=== PATIENT | female | born 1975 | race Two or more races ===

== ENCOUNTER 2020-10-31 19:48 | Emergency (ER) | payer MEDICAID ==
[~2020-10-31] VITALS: Ht 157.5 cm; Wt 83.0 kg
[2020-10-31 20:00] VITALS: BP 142/73
[2020-10-31] MEDS ORDERED: Augmentin 875mg Tab ORAL ONE (20:00)
[2020-10-31] MEDS ORDERED: Neosporin Oint Ud Pkt TOPIC ONE (20:00)
[2020-10-31] MEDS ORDERED: Tetanus/Diptheria/Pertussis IM ONE (20:00)
--- NOTE | 2020-10-31 20:00 | NUR ---
ED Nurse Note: Patient walked into Ed c/o animal bite that occured around 1245pm today, per patient it was her neighbors dog, unknown if neighbor's dog was vaccinated however patient presents with 1 skin tear cecilia located on her left forearm. patient is alert and oriented x4, ambulatory with a steady gait VSS. patient reports of being not up to date with vaccinations
--- NOTE | 2020-10-31 20:00 | NUR ---
Nurse Note: Patient walked into ED c/o dog bite that occured at around 1230pm today by her neighbors dog. bite occured on patients left forearm. unknown if dog is vaccinated.
[2020-10-31] MEDS ORDERED: AUGMENTIN 875-1 EAC1 ORAL (20:03)
[2020-10-31] MEDS ORDERED: NEOSPORIN OINT30 GM TOPIC (20:03)
--- NOTE | 2020-10-31 20:08 | Emergency Room Report ---
History of Present Illness General Chief Complaint: Animal Bite Source: Patient, Family Member - daughter Present Illness HPI Patient is a 45-year-old female denies any significant past medical history who presents to the ER complaining of dog bite. Patient states the dog bite occur red around 1230 this afternoon from her neighbors dog. She does not know her last tetanus shot. Allergies: Coded Allergies: No Known Allergies (Unverified , 10/31/20) COVID-19 Screening Contact w/high risk pt: No Experienced COVID-19 symptoms?: No COVID-19 Testing performed INFORMATION ASSOC: No Patient History Last Menstrual Period: n/a Reviewed Nursing Documentation: PMH: Agreed; PSxH: Agreed Nursing Documentation-PMH Past Medical History: No Stated History Review of Systems All Other Systems: negative except mentioned in HPI Physical Exam Vital Signs Date Time Temp Pulse Resp B/P (MAP) Pulse Ox O2 Delivery O2 Flow Rate FiO2 10/31/20 19:52 98.2 85 18 154/70 (98) 95 Room Air Sp02 EP Interpretation: reviewed, normal General Appearance: no apparent distress, alert, GCS 15, non-toxic Head: normocephalic, atraumatic Eyes: bilateral eye normal inspection, bilateral eye PERRL ENT: hearing grossly normal, normal pharynx, no angioedema, normal voice Neck: full range of motion, supple/symm/no masses Respiratory: chest non-tender, lungs clear, normal breath sounds, speaking full sentences Cardiovascular #1: regular rate, rhythm, no edema Gastrointestinal: normal bowel sounds, non tender, soft, non-distended, no guarding, no rebound Rectal: deferred Musculoskeletal: other - left mid forearm superficial dog bits with some edema, no obvious deformity Neurologic: automation manager III-XII nml as tested, oriented x3 Psychiatric: no suicidal/homicidal ideation Lymphatic: no adenopathy Medical Decision Making Diagnostic Impression: Primary Impression: Bite by animal ER Course Local wound care performed. Tdap given and patient started on augmentin. After discussing risks and benefits of further diagnostics, treatment plans, as well as indications for and risks of admission, the patient is agreeable to being discharged home. I have explained that their evaluation and treatment in the emergency department today is an important step towards them achieving better health but that their evaluation today is not intended to replace further evalu ation and treatment by a physician in their local clinic. I have explained that while the current findings suggest no immediate life threatening emergency they will require further evaluation and treatment by a physician of their choice in their area. They understand that it will be necessary for them to review the final reports of their ED visit with their clinic physician. We have reviewed indications for return to the Emergency Department. I have explained that additional time may need to pass and/or additional testing as an outpatient may be necessary before a definitive diagnosis can be made. They tell me they are willing to follow up as instructed within the timeframe I recommend. They appear to understand what we discussed. Additionally they understand that if they are unable to be seen by an outpatient physician they are welcome, and in fact should, return to the Emergency Department for a repeat evaluation. The patient is stable at time of discharge. Last Vital Signs Date Time Temp Pulse Resp B/P (MAP) Pulse Ox O2 Delivery O2 Flow Rate FiO2 10/31/20 19:52 98.2 85 18 154/70 (98) 95 Room Air Disposition: HOME, SELF-CARE Condition: Stable Scripts Amoxicillin/Potassium Clav 875-125* (AUGMENTIN 875-125 TABLET*) 1 Each Tablet 1 TAB ORAL TWICE A DAY, #14 TAB Prov: Leticia De Santiago M.D. 10/31/20 Neomycin/Polymyxin/Bacitracin* (Triple Antibiotic Ointment*) 28 Gm Oint...g. 30 GM TOPIC TID, #1 GM Apply a thin film (amount equal to the surface area of the fingertip) to the affected area 3 times daily. Prov: Leticia De Santiago M.D. 10/31/20 [facility] Patient Instructions: Animal Bite Additional Instructions: The patient was provided with discharge instructions, notified to follow-up with a primary care doctor and or specialist in the next 24-48 hours, and to return to the ED if they have worsening of their symptoms. Please note that this report is being documented using Fixed - Park[employer] technology. This can lead to erroneous entry secondary to incorrect interpretation by the dictating instrument. Leticia De Santiago M.D. Oct 31, 2020 20:08
[2020-10-31 20:10] VITALS: BP 142/73
--- NOTE | 2020-10-31 20:10 | NUR ---
ED Nurse Note: Pt cleared by health care Provider for discharge. DC instructions/prescription was given and explained to pt and verbalized understanding of teachings. All medical deviecs such as ID band removed. Pt is AAO x4, ambulatory and left with all personal belongings.
== END 2020-10-31 20:30 | disposition home or self-care (01) ==
LOC: EMR 20:11
DX: S91.352A Open bite, left foot, initial encounter (principal); Z23 Encounter for immunization; W54.0XXA Bitten by dog, initial encounter; Y92.9 Unspecified place or not applicable
CPT/HCPCS: 90471; 90715; Z7502; 99282